=== PATIENT | female | born 1985 | race Caucasian/White ===

== ENCOUNTER 2021-05-29 21:22 | Emergency (ER) | payer BC, OTHER ==
[2021-05-29] MEDS ORDERED: LORazepam 2 MG/ML INJ IM STA (22:02)
[2021-05-29] MEDS ORDERED: ZIPRASIDONE 20 MG VIAL IM STA (22:02)
--- NOTE | 2021-05-29 22:29 | ED ---
Alcohol HPI - General Chief Complaint: Alcohol Stated Complaint: ETOH, head laceration Time Seen by Provider: 05/29/21 21:29 Source: EMS Mode of arrival: EMS Limitations: altered mental status - History of Present Illness Initial Comments: This patient is a 35-year-old woman who was brought in to have evaluation after she reportedly was intoxicated and behaving bizarrely. The patient is not able to give any history. She does appear to be quite paranoid at my exam. MD Complaint: alcohol intoxication Last Drink: unknown Recent Trauma: Yes - Related Data Home Medications Medication Instructions Recorded Confirmed Dextroamphetamine/Amphetamine 30 mg PO DAILY 05/29/21 05/29/21 [Adderall Xr] Fluoride (Sodium) [Sodium Fluoride 1 applic DENTAL DIRECTED 05/29/21 05/29/21 5000 Plus] Fluoxetine (Unknown Dose) 1 cap PO DIRECTED 05/29/21 05/29/21 medroxyPROGESTERone [Depo-Provera] 150 mg IM Q84D 05/29/21 05/29/21 Allergies Allergy/AdvReac Type Severity Reaction Status Date / Time No Known Allergies Allergy Verified 11/12/19 14:01 Review of Systems ROS Statement: Those systems with pertinent positive or pertinent negative responses have been documented in the HPI. ROS Other: All systems not noted in ROS Statement are negative. 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 Date of last positivie culture/infection: 2011 MDRO Source:: right arm Past Surgical History: Adenoidectomy, Tonsillectomy Additional Past Surgical History / Comment(s): carpal tunnel, lung washing, right arm abscess, Past Psychological History: ADD/ADHD, Bipolar Smoking Status: Former smoker Past Alcohol Use History: Abuse, Daily Past Drug Use History: None Reported General Exam Limitations: no limitations General appearance: alert, appears intoxicated Head exam: Present: normocephalic, other (Patient does have frontal contusion and abrasion to the scalp) Eye exam: Present: PERRL, EOMI, nystagmus. Absent: scleral icterus, c onjunctival injection ENT exam: Present: normal oropharynx Neck exam: Present: normal inspection, full ROM. Absent: tenderness, meningismus Respiratory exam: Present: normal lung sounds bilaterally. Absent: respiratory distress, wheezes, rales, rhonchi, stridor Cardiovascular Exam: Present: regular rate, normal rhythm, normal heart sounds. Absent: systolic murmur, diastolic murmur, rubs, gallop GI/Abdominal exam: Present: soft. Absent: distended, tenderness, guarding, rebound, rigid, mass Extremities exam: Present: normal inspection, normal capillary refill. Absent: pedal edema, calf tenderness Back exam: Present: normal inspection. Absent: vertebral tenderness Neurological exam: Present: alert Skin exam: Present: warm, dry, intact, normal color. Absent: rash Course Vital Signs 05/29/21 05/30/21 05/30/21 21:26 02:00 03:00 Temperature 98.2 F 98.3 F Pulse Rate 93 83 Respiratory 20 17 17 Rate Blood Pressure 127/72 O2 Sat by Pulse 100 98 Oximetry 05/30/21 05/30/21 04:00 06:00 Temperature 98.7 F Pulse Rate 79 Respiratory 17 16 Rate Blood Pressure 97/64 O2 Sat by Pulse 96 Oximetry Procedures - Restraint - Face to Face Restraint Occurrence 1 Patient's Immediate Situation: Endangers self safety, Endangers others' safety Patient's Reaction to the Intervention: Uncooperative, Bizarre, Suspicious, Combative Patient's Medical & Behavioral Condition: Bizarre behavior Need to Continue or Terminate Restraint or Seclusion: Continue Face to Face Eval of Restraint Date: 05/29/21 Face to Face Eval of Restraint Time: 21:42 Medical Decision Making - Medical Decision Making Patient is a 35-year-old woman who is brought to have evaluation. She is initially uncooperative with the history and physical. The patient was going in and out of random patient rooms. She appeared to be paranoid and defensive. She did even jump up into the arms of a security incident response engineer here, wrapping her arms and legs around the guard. On reevaluation, after sobriety, the patient does not recall much of the prior events. She is contrite. There is no suicidal or homicidal ideation. Patient not displaying paranoid or delusional type behavior any longer - Lab Data Result diagrams: 05/30/21 01:37 05/30/21 01:37 Lab Results 05/30/21 05/30/21 Range/Units 01:37 01:37 WBC 9.0 (3.8-10.6) k/uL RBC 4.56 (3.80-5.40) m/uL Hgb 15.0 (11.4-16.0) gm/dL Hct 45.2 (34.0-46.0) % MCV 99.1 (80.0-100.0) fL MCH 32.9 (25.0-35.0) pg MCHC 33.2 (31.0-37.0) g/dL RDW 13.1 (11.5-15.5) % Plt Count 239 (150-450) k/uL MPV 7.8 Neutrophils % 81 % Lymphocytes % 13 % Monocytes % 4 % Eosinophils % 1 % Basophils % 0 % Neutrophils # 7.3 (1.3-7.7) k/uL Lymphocytes # 1.2 (1.0-4.8) k/uL Monocytes # 0.3 (0-1.0) k/uL Eosinophils # 0.1 (0-0.7) k/uL Basophils # 0.0 (0-0.2) k/uL Sodium 144 (137-145) mmol/L Potassium 3.6 (3.5-5.1) mmol/L Chloride 109 H (98-107) mmol/L Carbon Dioxide 24 (22-30) mmol/L Anion Gap 11 mmol/L BUN 12 (7-17) mg/dL Creatinine 0.79 (0.52-1.04) mg/dL Est GFR (CKD-EPI)AfAm >90 (>60 ml/min/1.73 sqM) Est GFR (CKD-EPI)NonAf >90 (>60 ml/min/1.73 sqM) Glucose 106 H (74-99) mg/dL Calcium 9.0 (8.4-10.2) mg/dL Serum Alcohol 188 mg/dL Disposition Clinical Impression: Alcoholic intoxication Disposition: HOME SELF-CARE Condition: Good Instructions (If sedation given, give patient instructions): Alcohol Intoxication (ED) Is patient prescribed a controlled substance at d/c from ED?: No Referrals: None,Stated [Primary Care Provider] - 1-2 days
[2021-05-30 01:58] LABS: African American GFR (CKD) >90 (>60 ml/min/1.73 sqM); Anion Gap 11 mmol/L; Basophils % (A) 0 %; Blood Urea Nitrogen 12 mg/dL (7-17); Carbon Dioxide 24 mmol/L (22-30); Chloride 109 mmol/L (98-107); Eosinophils # (A) 0.1 k/uL (0-0.7); Eosinophils % (A) 1 %; Glucose 106 mg/dL (74-99); HCT 45.2 % (34.0-46.0); Lymphocytes # (A) 1.2 k/uL (1.0-4.8); Lymphocytes % (A) 13 %; MCH 32.9 pg (25.0-35.0); MCHC 33.2 g/dL (31.0-37.0); MCV 99.1 fL (80.0-100.0); Mean Platelet Volume 7.8; Monocytes # (A) 0.3 k/uL (0-1.0); Monocytes % (A) 4 %; Neutrophils # (A) 7.3 k/uL (1.3-7.7); Neutrophils % (A) 81 %; Non-African American GFR(CKD) >90 (>60 ml/min/1.73 sqM); Platelet Count 239 k/uL (150-450); Potassium 3.6 mmol/L (3.5-5.1); RBC 4.56 m/uL (3.80-5.40); RDW 13.1 % (11.5-15.5); Sodium 144 mmol/L (137-145)
[2021-05-30 02:01] LABS: Alcohol 188 mg/dL
--- NOTE | 2021-05-30 03:58 | CT ---
EXAMINATION TYPE: CT brain wo con DATE OF EXAM: 05/30/2021 COMPARISON: None HISTORY: fall CT DLP: 1086.4 mGycm Automated exposure control for dose reduction was used. Ventricles and sulci appear normal. There is no mass effect or midline shift. There is no evidence of intracranial hemorrhage. There is normal aeration of the mastoid sinuses. Calvarium is intact. Skull base is intact. IMPRESSION: Negative unenhanced head CT scan.
[2021-05-30 06:03] VITALS: BP 97/64; PULSE 79; RESP 16; TEMP 98.7
== END 2021-05-30 08:12 | disposition home or self-care (01) ==
LOC: EC 21:22
DX: F10.129 Alcohol abuse with intoxication, unspecified (principal); K21.9 Gastro-esophageal reflux disease without esophagitis; F90.9 Attention-deficit hyperactivity disorder, unspecified type; F31.9 Bipolar disorder, unspecified; Y90.6 Blood alcohol level of 120-199 mg/100 ml; Z87.891 Personal history of nicotine dependence
CPT/HCPCS: 99285; 96372 ×2; 36415; 80048; 85025; 80320; 70450; J2060; J3486

== ENCOUNTER 2022-11-06 19:31 | Emergency (ER) | payer BC ==
[2022-11-06 19:47] VITALS: RESP 18
[2022-11-06] MEDS ORDERED: ONDANSETRON 4 MG/2 ML VIAL IVP STA (20:15)
[2022-11-06] MEDS ORDERED: SODIUM CHLORIDE 0.9% 1,000 ML IV ONE (20:15)
[2022-11-06] MEDS ORDERED: KETOROLAC 15 MG/ML 1 ML VIAL IVP STA (20:15)
[2022-11-06 20:56] LABS: Basophils % (A) 1 %; Eosinophils # (A) 0.1 k/uL (0-0.7); Eosinophils % (A) 3 %; HCT 37.8 % (34.0-46.0); HGB 13.2 gm/dL (11.4-16.0); Lymphocytes # (A) 0.9 k/uL (1.0-4.8); Lymphocytes % (A) 20 %; MCH 34.5 pg (25.0-35.0); MCV 98.8 fL (80.0-100.0); Mean Platelet Volume 7.9; Monocytes # (A) 0.3 k/uL (0-1.0); Monocytes % (A) 6 %; Neutrophils # (A) 3.2 k/uL (1.3-7.7); Neutrophils % (A) 69 %; Platelet Count 157 k/uL (150-450); RBC 3.83 m/uL (3.80-5.40); RDW 13.2 % (11.5-15.5); WBC 4.6 k/uL (3.8-10.6)
[2022-11-06 21:07] LABS: ALT 37 U/L (4-34); AST 51 U/L (14-36); African American GFR (CKD) >90 (>60 ml/min/1.73 sqM); Alkaline Phosphatase 86 U/L (38-126); Anion Gap 9 mmol/L; Blood Urea Nitrogen 17 mg/dL (7-17); Calcium 8.8 mg/dL (8.4-10.2); Carbon Dioxide 24 mmol/L (22-30); Chloride 107 mmol/L (98-107); Glucose 95 mg/dL (74-99); Non-African American GFR(CKD) >90 (>60 ml/min/1.73 sqM); Potassium 3.7 mmol/L (3.5-5.1); Sodium 140 mmol/L (137-145); Total Bilirubin 0.4 mg/dL (0.2-1.3); Total Protein 6.6 g/dL (6.3-8.2)
[2022-11-06 21:25] LABS: Appearance,Urine Cloudy (Clear); Bacteria,Urine Few /hpf; Bilirubin,Urine Negative (Negative); Blood,Urine Small (Negative); Color,Urine Light Red; Glucose,Urine (UA) Negative (Negative); Ketones,Urine Trace (Negative); Leukocyte Esterase,Urine Trace (Negative); Mucus,Urine Few /hpf; Nitrite,Urine Negative (Negative); PH, Urine 6.5 (5.0-8.0); Protein,Urine 1+ (Negative); RBC,Urine 4 /hpf (0-5); Specific Gravity,Urine 1.035 (1.001-1.035); Squamous Epithelial Cell,Urine 7 /hpf (0-4); Urobilinogen,Urine <2.0 mg/dL (<2.0); WBC,Urine 2 /hpf (0-5)
--- NOTE | 2022-11-06 22:14 | ED ---
Female Urogenital HPI - General Chief complaint: Urogenital Stated complaint: abd pain Time Seen by Provider: 11/06/22 20:05 Source: patient Mode of arrival: wheelchair Limitations: no limitations - History of Present Illness Initial comments: 37-year-old female presenting with chief complaint of pelvic pain. Pain is been ongoing for the last 2 weeks, even across both sides of the pelvis. Patient has history of endometriosis. States that she experiences pelvic pressure with urination and defecation. She admits to intermittent nausea and vomiting. No fevers. No diarrhea. No vaginal discharge or bleeding. Patient was recently on antibiotics for a UTI. No flank pain. She is sexually active with same long-term partner, denies any chance of . - Related Data Home Medications Medication Instructions Recorded Confirmed Dextroamphetamine/Amphetamine 30 mg PO DAILY 05/29/21 05/29/21 [Adderall Xr] Fluoride (Sodium) [Sodium Fluoride 1 applic DENTAL DIRECTED 05/29/21 05/29/21 5000 Plus] Fluoxetine (Unknown Dose) 1 cap PO DIRECTED 05/29/21 05/29/21 medroxyPROGESTERone [Depo-Provera] 150 mg IM Q84D 05/29/21 05/29/21 Previous Rx's Medication Instructions Recorded Amoxic-Pot Clav 875-125Mg 1 tab PO Q12HR 10 Days #20 tab 11/06/22 [Augmentin 875-125] Ondansetron Odt [Zofran Odt] 4 mg PO Q8HR PRN #20 tab 11/06/22 Allergies Allergy/AdvReac Type Severity Reaction Status Date / Time No Known Allergies Allergy Verified 11/06/22 19:43 Review of Systems ROS Statement: Those systems with pertinent positive or pertinent negative responses have been documented in the HPI. ROS Other: All systems not noted in ROS Statement are negative. 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 Date of last positivie culture/infection: 2011 MDRO Source:: right arm Past Surgical History: Adenoidectomy, Tonsillectomy Additional Past Surgical History / Comment(s): carpal tunnel, lung washing, rig ht arm abscess, Past Psychological History: ADD/ADHD, Bipolar Smoking Status: Former smoker Past Alcohol Use History: Occasional Past Drug Use History: None Reported, Marijuana General Exam Limitations: no limitations General appearance: alert, in no apparent distress Head exam: Present: atraumatic, normocephalic, normal inspection Eye exam: Present: normal appearance, EOMI Neck exam: Present: normal inspection, full ROM Respiratory exam: Present: normal lung sounds bilaterally. Absent: respiratory distress, wheezes, rales, rhonchi, stridor Cardiovascular Exam: Present: regular rate, normal rhythm, normal heart sounds. Absent: systolic murmur, diastolic murmur, rubs, gallop, clicks GI/Abdominal exam: Present: soft, tenderness. Absent: distended, guarding, rebound, rigid Neurological exam: Present: alert, oriented X3, CN II-XII intact Psychiatric exam: Present: normal affect, normal mood Skin exam: Present: warm, dry, intact, normal color. Absent: rash Course Vital Signs 11/06/22 19:43 Temperature 99.0 F Pulse Rate 114 H Respiratory 18 Rate Blood Pressure 138/66 O2 Sat by Pulse 98 Oximetry Medical Decision Making - Medical Decision Making Was pt. sent in by a medical professional or institution (, PA, PHLEBOTOMIST, urgent care, hospital, or fdc...) When possible be specific @ -No Did you speak to anyone other than the patient for history (EMS, parent, family, police, friend...)? What history was obtained from this source @ -No Did you review nursing and triage notes (agree or disagree)? Why? @ -I reviewed and agree with nursing and triage notes Were old charts reviewed (outside hosp., previous admission, EMS record, old EKG, old radiological studies, urgent care reports/EKG's, fdc records)? Report findings @ -No old charts were reviewed Differential Diagnosis (chest pain, altered mental status, abdominal pain women, abdominal pain men, vaginal bleeding, weakness, fever, dyspnea, syncope, headache, dizziness, GI bleed, back pain, seizure, CVA, palpatations, mental health, musculoskeletal)? @ -MDM Differential Abdominal Pain Women: Appendicitis, Cholecystitis, diverticulosis, ischemic bowel, pancreatitis, hepatitis, UTI, gastroenteritis, AAA, incarcerated hernia, bowel obstruction, constipation, inflammatory bowel, hepatitis, peptic ulcer disease, splenic infarction, perforated viscus, vulvitis, ovarian torsion, PID, kidney stone, placenta abruption... This is not meant to be an all-inclusive list EKG interpreted by me (3pts min.). @ -As above X-rays interpreted by me (1pt min.). @ -None done CT interpreted by me (1pt min.). @ -CT shows some circumferential wall thickening of the rectum. This may in part be due to nondistention. Nonobstructive 6 mm right renal calculus. U/S interpreted by me (1pt. min.). @ -None done What testing was considered but not performed or refused? (CT, X-rays, U/S, labs)? Why? @ -None What meds were considered but not given or refused? Why? @ -None Did you discuss the management of the patient with other professionals (professionals i.e. , PA, PHLEBOTOMIST, lab, RT, psych nurse, social work instructor, web services developer, teacher, dairy quality assurance officer, case work aide)? Give summary @ -No Was smoking cessation discussed for >3mins.? @ -No Was critical care preformed (if so, how long)? @ -No Were there social determinants of health that impacted care today? How? (Homelessness, low income, unemployed, alcoholism, drug addiction, transportation, low edu. Level, literacy, decrease access to med. care, snf, rehab)? @ -No Was there de-escalation of care discussed even if they declined (Discuss DNR or withdrawal of care, Hospice)? DNR status @ -No What co-morbidities impacted this encounter? (DM, HTN, Smoking, COPD, CAD, Cancer, CVA, ARF, Chemo, Hep., AIDS, mental health diagnosis, sleep apnea, morbid obesity)? @ -None Was patient admitted / discharged? Hospital course, mention meds given and route, prescriptions, significant lab abnormalities, going to OR and other pertinent info. @ -37-year-old female presenting with chief complaint of pelvic pain ongoing for 2 days. She admits to intermittent nausea and vomiting. Pain is worse with bowel movements. On physical examination there is tenderness over the bilateral lower quadrants. Lab work shows no leukocytosis or anemia. There is mild transaminitis. Urine shows signs of contamination, will be sent for culture. HCG is negative. CT shows circumferential wall thickening of the rectum. Patient will be treated for infectious colitis with Augmentin and instructed to follow-up with PCP and GI. She is educated on today's findings and management at home. Follow-up with PCP. Report back to ER with any new or worsening symptoms. Discussed return parameters and answered all questions. Patient conveyed verbal understanding and agreed to the plan. I discussed this case in detail with my attending Dr. Zheng Undiagnosed new problem with uncertain prognosis? @ -No Drug Therapy requiring intensive monitoring for toxicity (Heparin, Nitro, Insulin, Cardizem)? @ -No Were any procedures done? @ -No Diagnosis/symptom? @ -Colitis Acute, or Chronic, or Acute on Chronic? @ -Acute Uncomplicated (without systemic symptoms) or Complicated (systemic symptoms)? @ -Uncomplicated Side effects of treatment? @ -No Exacerbation, Progression, or Severe Exacerbation? @ -No Poses a threat to life or bodily function? How? (Chest pain, [place], HI, pneumonia, PE, COPD, DKA, ARF, appy, cholecystitis, CVA, Diverticulitis, Homicidal, Suicidal, threat to staff... and all critical care pts) @ -No - Lab Data Result diagrams: 11/06/22 20:44 11/06/22 20:44 Lab Results 11/06/22 11/06/22 11/06/22 Range/Units 20:44 20:44 21:02 WBC 4.6 (3.8-10.6) k/uL RBC 3.83 (3.80-5.40) m/uL Hgb 13.2 (11.4-16.0) gm/dL Hct 37.8 (34.0-46.0) % MCV 98.8 (80.0-100.0) fL MCH 34.5 (25.0-35.0) pg MCHC 35.0 (31.0-37.0) g/dL RDW 13.2 (11.5-15.5) % Plt Count 157 (150-450) k/uL MPV 7.9 Neutrophils % 69 % Lymphocytes % 20 % Monocytes % 6 % Eosinophils % 3 % Basophils % 1 % Neutrophils # 3.2 (1.3-7.7) k/uL Lymphocytes # 0.9 L (1.0-4.8) k/uL Monocytes # 0.3 (0-1.0) k/uL Eosinophils # 0.1 (0-0.7) k/uL Basophils # 0.0 (0-0.2) k/uL Sodium 140 (137-145) mmol/L Potassium 3.7 (3.5-5.1) mmol/L Chloride 107 (98-107) mmol/L Carbon Dioxide 24 (22-30) mmol/L Anion Gap 9 mmol/L BUN 17 (7-17) mg/dL Creatinine 0.73 (0.52-1.04) mg/dL Est GFR (CKD-EPI)AfAm >90 (>60 ml/min/1.73 sqM) Est GFR (CKD-EPI)NonAf >90 (>60 ml/min/1.73 sqM) Glucose 95 (74-99) mg/dL Calcium 8.8 (8.4-10.2) mg/dL Total Bilirubin 0.4 (0.2-1.3) mg/dL AST 51 H (14-36) U/L ALT 37 H (4-34) U/L Alkaline Phosphatase 86 (38-126) U/L Total Protein 6.6 (6.3-8.2) g/dL Albumin 4.0 (3.5-5.0) g/dL Urine Color Urine Appearance (Clear) Urine pH (5.0-8.0) Ur Specific Docena (1.001-1.035) Urine Protein (Negative) Urine Glucose (UA) (Negative) Urine Ketones (Negative) Urine Blood (Negative) Urine Nitrite (Negative) Urine Bilirubin (Negative) Urine Urobilinogen (<2.0) mg/dL Ur Leukocyte Esterase (Negative) Urine RBC (0-5) /hpf Urine WBC (0-5) /hpf Ur Squamous Epith Cells (0-4) /hpf Urine Bacteria (None) /hpf Urine Mucus (None) /hpf Urine HCG, Qual Not Detected (Not Detectd) 11/06/22 Range/Units 21:02 WBC (3.8-10.6) k/uL RBC (3.80-5.40) m/uL Hgb (11.4-16.0) gm/dL Hct (34.0-46.0) % MCV (80.0-100.0) fL MCH (25.0-35.0) pg MCHC (31.0-37.0) g/dL RDW (11.5-15.5) % Plt Count (150-450) k/uL MPV Neutrophils % % Lymphocytes % % Monocytes % % Eosinophils % % Basophils % % Neutrophils # (1.3-7.7) k/uL Lymphocytes # (1.0-4.8) k/uL Monocytes # (0-1.0) k/uL Eosinophils # (0-0.7) k/uL Basophils # (0-0.2) k/uL Sodium (137-145) mmol/L Potassium (3.5-5.1) mmol/L Chloride (98-107) mmol/L Carbon Dioxide (22-30) mmol/L Anion Gap mmol/L BUN (7-17) mg/dL Creatinine (0.52-1.04) mg/dL Est GFR (CKD-EPI)AfAm (>60 ml/min/1.73 sqM) Est GFR (CKD-EPI)NonAf (>60 ml/min/1.73 sqM) Glucose (74-99) mg/dL Calcium (8.4-10.2) mg/dL Total Bilirubin (0.2-1.3) mg/dL AST (14-36) U/L ALT (4-34) U/L Alkaline Phosphatase (38-126) U/L Total Protein (6.3-8.2) g/dL Albumin (3.5-5.0) g/dL Urine Color Light Red Urine Appearance Cloudy H (Clear) Urine pH 6.5 (5.0-8.0) Ur Specific Docena 1.035 (1.001-1.035) Urine Protein 1+ H (Negative) Urine Glucose (UA) Negative (Negative) Urine Ketones Trace H (Negative) Urine Blood Small H (Negative) Urine Nitrite Negative (Negative) Urine Bilirubin Negative (Negative) Urine Urobilinogen <2.0 (<2.0) mg/dL Ur Leukocyte Esterase Trace H (Negative) Urine RBC 4 (0-5) /hpf Urine WBC 2 (0-5) /hpf Ur Squamous Epith Cells 7 H (0-4) /hpf Urine Bacteria Few H (None) /hpf Urine Mucus Few H (None) /hpf Urine HCG, Qual (Not Detectd) Disposition Clinical Impression: Colitis Disposition: HOME SELF-CARE Condition: Fair Instructions (If sedation given, give patient instructions): Colitis (ED) Additional Instructions: Follow-up with PCP and gastroenterology. Report back to ER with any new or worsening symptoms. Take medication as prescribed. Prescriptions: Amoxic-Pot Clav 875-125Mg [Augmentin 875-125] 1 tab PO Q12HR 10 Days #20 tab Ondansetron Odt [Zofran Odt] 4 mg PO Q8HR PRN #20 tab PRN Reason: Nausea Is patient prescribed a controlled substance at d/c from ED?: No Referrals: Nonstaff,Physician [Primary Care Provider] - 1-2 days Anna Fox MD [STAFF PHYSICIAN] - 1-2 days Time of Disposition: 22:41
--- NOTE | 2022-11-06 22:20 | CT ---
EXAMINATION TYPE: CT abdomen pelvis w con DATE OF EXAM: 11/06/2022 COMPARISON: NONE HISTORY: 37-year-old female lower abdominal/ pelvic pain x few weeks, TECHNIQUE: Contiguous axial scanning of the abdomen and pelvis following administration of 100 ml Iso valentina 300 IV contrast. Delayed images through the kidneys and coronal/sagittal reconstructions perform ed. CT DLP: 1026.6 mGycm Automated exposure control for dose reduction was used. FINDINGS: LUNG BASES: Strandy atelectasis in the lower lungs. No pleural effusion. LIVER/GB: There may be some underlying fatty infiltration of the liver. No focal liver lesion or bili carlos ductal dilatation. Portal venous system is patent. Some additional focal fat along the anterior f alciform ligament. No abnormal gallbladder distention. PANCREAS: No significant abnormality is seen. SPLEEN: No significant abnormality is seen. ADRENALS: No significant abnormality is seen. KIDNEYS: A 1.1 cm lower pole right renal cortical cyst. 6 mm nonobstructive right renal stone. Puncta te 2 mm nonobstructive left renal stone. There is symmetric uptake and excretion of contrast from the kidneys. BOWEL: Sbar-rf-kitzaryr circumferential wall thickening of the rectum, axial image 74 may in part be due to nondistention. Normal appendix. Scattered mild stool. Left side of the colon is collapsed. No dilated small bowel, free fluid, or free air. LYMPH NODES: No greater than 1cm abdominal or pelvic lymph nodes are appreciated. PELVIS: Bladder is collapsed. Uterus anteverted. Both ovaries are visualized. No abnormal fluid colle ction in the pelvis or pelvic lymphadenopathy. OSSEOUS STRUCTURES: No significant abnormality is seen. OTHER: No significant additional abnormality is seen. IMPRESSION: THERE SEEMS TO BE SOME CIRCUMFERENTIAL WALL THICKENING OF THE RECTUM. THIS MAY IN PART BE DUE TO NOND ISTENTION. CORRELATE FOR SYMPTOMS OF NONSPECIFIC INFECTIOUS OR INFLAMMATORY DISTAL COLITIS. NONOBSTRUCTIVE 6 MM RIGHT RENAL CALCULUS.
[2022-11-06] MEDS ORDERED: MORPHINE SULFATE 4 MG/ML SYRINGE IVP STA (22:38)
[2022-11-06] MEDS ORDERED: AMOXIC-POT CLAV 875-125MG 1 EACH TAB PO STA (22:41)
[2022-11-06 23:04] VITALS: BP 126/83; PULSE 88; TEMP 97.9
== END 2022-11-06 23:04 | disposition home or self-care (01) ==
LOC: EC 19:31
DX: K52.9 Noninfective gastroenteritis and colitis, unspecified (principal); F31.9 Bipolar disorder, unspecified; Z87.891 Personal history of nicotine dependence; F12.90 Cannabis use, unspecified, uncomplicated; Z79.899 Other long term (current) drug therapy
CPT/HCPCS: 36415; 80053; 85025; 81001; 81025; 74177; 99284; 96374; 96375 ×2; 96361 ×2; J2270; J2405; J1885; Q9967

== ENCOUNTER 2023-01-09 10:24 | Emergency (ER) | payer BC ==
--- NOTE | 2023-01-09 12:04 | ED ---
Syncope HPI - General Chief Complaint: Syncope Stated Complaint: syncope Time Seen by Provider: 01/09/23 12:02 Source: patient, RN notes reviewed Mode of arrival: ambulatory Limitations: no limitations - History of Present Illness Initial Comments: This is a 35 year old female who presents to the emergency department for a syncopal episode. Patient was doing work at home and states that she suddenly woke up on the floor. Her son came to the house and knocked on the door multiple times, and states that it took her a long time to become fully coherent and get up to answer the door. She does have a hx of seizures, however she has not had one in several years. Denies biting her tongue or any loss of bowel/bladder control. She does report generalized body aches since waking up. Denies any chest pain or shortness of breath. Also states that since waking up she has had epigastric pain and nausea. MD Complaint: loss of consciousness - Related Data Home Medications Medication Instructions Recorded Confirmed Dextroamphetamine/Amphetamine 30 mg PO DAILY 05/29/21 01/09/23 [Adderall Xr] medroxyPROGESTERone [Depo-Provera] 150 mg IM Q84D 05/29/21 01/09/23 Albuterol Inhaler [Ventolin Hfa 1 - 2 puff INHALATION RT-Q6H PRN 01/09/23 01/09/23 Inhaler] Atorvastatin [Lipitor] 20 mg PO HS 01/09/23 01/09/23 FLUoxetine HCL 40 mg PO DAILY 01/09/23 01/09/23 FLUoxetine HCL [PROzac] 20 mg PO DAILY 01/09/23 01/09/23 Magnesium 250 mg PO DAILY 01/09/23 01/09/23 buPROPion XL [Wellbutrin XL] 150 mg PO DAILY 01/09/23 01/09/23 Previous Rx's Medication Instructions Recorded Ondansetron Odt [Zofran Odt] 4 mg PO Q8HR PRN #20 tab 11/06/22 Allergies Allergy/AdvReac Type Severity Reaction Status Date / Time No Known Allergies Allergy Verified 01/09/23 13:34 Review of Systems ROS Statement: Those systems with pertinent positive or pertinent negative responses have been documented in the HPI. ROS Other: All systems not noted in ROS Statement are negative. 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 Head: Normocephalic, atraumatic Eyes: PERRLA, EOMI ENT: Airway patent Chest: Nonlabored breathing Skin: No visual rash, normal skin tone Neuro: Alert and oriented 3 Musculoskeletal: No gross abnormalities I performed the QuickNote portion of this chart. Signed Leela Fall PA-C. Limitations: no limitations Course Vital Signs 01/09/23 01/09/23 01/09/23 11:09 14:49 16:21 Temperature 97.9 F 98.1 F 98.6 F Pulse Rate 91 92 82 Respiratory 16 18 18 Rate Blood Pressure 135/94 148/86 149/99 O2 Sat by Pulse 98 100 99 Oximetry Medical Decision Making - Medical Decision Making This is a 37 year old female who presents to the emergency department for a syncopal episode. Was pt. sent in by a medical professional or institution? @ -No Did you speak to anyone other than the patient for history? @ -No Did you review nursing and triage notes? @ -Yes, and I agree, it is accurate with regards to the patient's symptoms. Were old charts reviewed? @ -No Differential Diagnosis? @ -Differential Syncope: Valvular disease, hypertrophic cardiomyopathy, pulmonary embolism, tamponade, tachycardia, bradycardia, MT, hypovolemia, hemorrhage, dissection, anemia, intracranial hemorrhage, seizure, hypoglycemia, carbon monoxide poisoning, this is not meant to be an all-inclusive list. EKG interpreted by me (3pts min.)? @ -EKG interpreted by me demonstrating the following: Sinus rhythm. Ventricu lar rate 83 beats per minute, NV interval 129 ms, QRS duration 77 ms, QTC 410 ms. X-rays interpreted by me (1pt min.)? @ -Not obtained CT interpreted by me (1pt min.)? @ -Not obtained U/S interpreted by me (1pt. min.)? @ -Gallbladder ultrasound obtained. My interpretation identifies no evidence of gallbladder wall thickening or cholelithiasis. What testing was considered but not performed? (CT, X-rays, U/S, labs)? Why? @ -None What meds were considered but not given? Why? @ -None Did you discuss the management of the patient with other professionals? @ -No Did you reconcile home meds? @ -No Was smoking cessation discussed for >3mins.? @ -No Was critical care preformed (if so, how long)? @ -No Were there social determinants of health that impacted care today? How? (Homelessness, low income, unemployed, alcoholism, drug addiction, transportation, low edu. Level, literacy, decrease access to med. care, long-term, rehab)? @ -Alcoholism, increasing liver enzymes, which were noted to be elevated more so than normal on lab work obtained today. Was there de-escalation of care discussed even if they declined? (Discuss DNR or withdrawal of care, Hospice)? @ -No What co-morbidities impacted this encounter? (DM, HTN, Smoking, COPD, CAD, Cancer, CVA, Hep., AIDS, mental health diagnosis, sleep apnea, morbid obesity)? @ -Seizures, alcoholism Was patient admitted / discharged? @ -Discharged. Lab work obtained revealing elevated liver enzymes and no other actionable findings. Heterophile and alcohol level were negative. In light of the elevated liver enzymes, we did obtain a gallbladder ultrasound revealing hepatic steatosis. Discussed with the patient that given that she has been having body aches following the syncopal episode, as well as confusion and taking a long time to become coherent after the syncopal episode, it is very possible that she did have a seizure. She was given IV fluids and her symptoms were well controlled in the emergency department. She was given information for local primary care providers as well as follow up with gastroenterology for further evaluation of the elevated liver enzymes. She is also advised to stop consuming alcohol, as this will further contribute to the problem. Undiagnosed new problem with uncertain prognosis? @ -None Drug Therapy requiring intensive monitoring for toxicity (Heparin, Nitro, Insulin, Cardizem)? @ -None Were any procedures done? @ -None Diagnosis/symptom? @ -Syncope Acute, or Chronic, or Acute on Chronic? @ -Acute Uncomplicated (without systemic symptoms) or Complicated (systemic symptoms)? @ -Uncomplicated Side effects of treatment? @ -None Exacerbation, Progression, or Severe Exacerbation] @ -Not applicable Poses a threat to life or bodily function? @ -Unclear Return precautions reviewed in depth, the patient is instructed to return to the emergency department with any new, worsening, or concerning symptoms. Patient verbalized understanding. This case was discussed in detail with the attending ED physician, Dr. Norris. Presentation, findings, and treatment plan discussed in detail as well. - Lab Data Result diagrams: 01/09/23 12:00 01/09/23 12:00 Lab Results 01/09/23 01/09/23 01/09/23 Range/Units 12:00 12:00 12:00 WBC 8.9 (3.8-10.6) k/uL RBC 4.43 (3.80-5.40) m/uL Hgb 15.4 (11.4-16.0) gm/dL Hct 45.9 (34.0-46.0) % MCV 103.6 H (80.0-100.0) fL MCH 34.9 (25.0-35.0) pg MCHC 33.7 (31.0-37.0) g/dL RDW 13.9 (11.5-15.5) % Plt Count 184 (150-450) k/uL MPV 8.4 Neutrophils % 92 % Lymphocytes % 3 % Monocytes % 3 % Eosinophils % 1 % Basophils % 0 % Neutrophils # 8.2 H (1.3-7.7) k/uL Lymphocytes # 0.3 L (1.0-4.8) k/uL Monocytes # 0.2 (0-1.0) k/uL Eosinophils # 0.1 (0-0.7) k/uL Basophils # 0.0 (0-0.2) k/uL Macrocytosis Slight PT 10.0 (9.0-12.0) sec INR 0.9 (<1.2) APTT 20.8 L (22.0-30.0) sec Sodium 140 (137-145) mmol/L Potassium 4.1 (3.5-5.1) mmol/L Chloride 100 (98-107) mmol/L Carbon Dioxide 26 (22-30) mmol/L Anion Gap 14 mmol/L BUN 15 (7-17) mg/dL Creatinine 0.52 (0.52-1.04) mg/dL Est GFR (CKD-EPI)AfAm >90 (>60 ml/min/1.73 sqM) Est GFR (CKD-EPI)NonAf >90 (>60 ml/min/1.73 sqM) Glucose 99 (74-99) mg/dL Calcium 10.3 H (8.4-10.2) mg/dL Total Bilirubin 1.7 H (0.2-1.3) mg/dL AST 370 H (14-36) U/L ALT 262 H (4-34) U/L Alkaline Phosphatase 88 (38-126) U/L Troponin I (0.000-0.034) ng/mL Total Protein 7.9 (6.3-8.2) g/dL Albumin 5.0 (3.5-5.0) g/dL Serum Alcohol mg/dL Heterophile Antibody (Negative) 01/09/23 01/09/23 01/09/23 Range/Units 12:00 13:55 14:59 WBC (3.8-10.6) k/uL RBC (3.80-5.40) m/uL Hgb (11.4-16.0) gm/dL Hct (34.0-46.0) % MCV (80.0-100.0) fL MCH (25.0-35.0) pg MCHC (31.0-37.0) g/dL RDW (11.5-15.5) % Plt Count (150-450) k/uL MPV Neutrophils % % Lymphocytes % % Monocytes % % Eosinophils % % Basophils % % Neutrophils # (1.3-7.7) k/uL Lymphocytes # (1.0-4.8) k/uL Monocytes # (0-1.0) k/uL Eosinophils # (0-0.7) k/uL Basophils # (0-0.2) k/uL Macrocytosis PT (9.0-12.0) sec INR (<1.2) APTT (22.0-30.0) sec Sodium (137-145) mmol/L Potassium (3.5-5.1) mmol/L Chloride (98-107) mmol/L Carbon Dioxide (22-30) mmol/L Anion Gap mmol/L BUN (7-17) mg/dL Creatinine (0.52-1.04) mg/dL Est GFR (CKD-EPI)AfAm (>60 ml/min/1.73 sqM) Est GFR (CKD-EPI)NonAf (>60 ml/min/1.73 sqM) Glucose (74-99) mg/dL Calcium (8.4-10.2) mg/dL Total Bilirubin (0.2-1.3) mg/dL AST (14-36) U/L ALT (4-34) U/L Alkaline Phosphatase (38-126) U/L Troponin I <0.012 (0.000-0.034) ng/mL Total Protein (6.3-8.2) g/dL Albumin (3.5-5.0) g/dL Serum Alcohol <10 mg/dL Heterophile Antibody Negative (Negative) - Radiology Data Radiology results: report reviewed, image reviewed Disposition Clinical Impression: Syncope, Nausea & vomiting Disposition: HOME SELF-CARE Instructions (If sedation given, give patient instructions): Syncope (ED) Additional Instructions: Return to the emergency department with any new, worsening, or concerning symptoms. Alternate with ibuprofen and Tylenol as needed for pain relief. Contact the communication engineer as listed below for a follow-up appointment regarding the elevated liver enzymes. Follow up with your primary care provider in 1-2 days. Is patient prescribed a controlled substance at d/c from ED?: No Referrals: Nonstaff,Physician [Primary Care Provider] - 1-2 days Anna Fox MD [STAFF PHYSICIAN] - 1-2 days Forms: Area PCPs
[2023-01-09 12:15] LABS: Basophils % (A) 0 %; Eosinophils # (A) 0.1 k/uL (0-0.7); Eosinophils % (A) 1 %; HCT 45.9 % (34.0-46.0); HGB 15.4 gm/dL (11.4-16.0); Lymphocytes # (A) 0.3 k/uL (1.0-4.8); Lymphocytes % (A) 3 %; MCH 34.9 pg (25.0-35.0); MCHC 33.7 g/dL (31.0-37.0); MCV 103.6 fL (80.0-100.0); Macrocytosis Slight; Mean Platelet Volume 8.4; Monocytes # (A) 0.2 k/uL (0-1.0); Monocytes % (A) 3 %; Neutrophils # (A) 8.2 k/uL (1.3-7.7); Neutrophils % (A) 92 %; Platelet Count 184 k/uL (150-450); RBC 4.43 m/uL (3.80-5.40); RDW 13.9 % (11.5-15.5); WBC 8.9 k/uL (3.8-10.6)
[2023-01-09 12:26] LABS: INR 0.9 (<1.2)
[2023-01-09 12:27] LABS: ALT 262 U/L (4-34); AST 370 U/L (14-36); African American GFR (CKD) >90 (>60 ml/min/1.73 sqM); Alkaline Phosphatase 88 U/L (38-126); Anion Gap 14 mmol/L; Blood Urea Nitrogen 15 mg/dL (7-17); Calcium 10.3 mg/dL (8.4-10.2); Carbon Dioxide 26 mmol/L (22-30); Chloride 100 mmol/L (98-107); Glucose 99 mg/dL (74-99); Non-African American GFR(CKD) >90 (>60 ml/min/1.73 sqM); Potassium 4.1 mmol/L (3.5-5.1); Sodium 140 mmol/L (137-145); Total Bilirubin 1.7 mg/dL (0.2-1.3); Total Protein 7.9 g/dL (6.3-8.2)
[2023-01-09 12:41] LABS: Partial Thromboplastin Time 20.8 sec (22.0-30.0)
[2023-01-09] MEDS ORDERED: KETOROLAC 15 MG/ML 1 ML VIAL IVP STA ×2 (13:19→15:47)
[2023-01-09] MEDS ORDERED: ONDANSETRON 4 MG/2 ML VIAL IVP STA (13:19)
[2023-01-09] MEDS ORDERED: SODIUM CHLORIDE 0.9% 1,000 ML IV STA (13:19)
--- NOTE | 2023-01-09 14:58 | US ---
EXAMINATION TYPE: US gallbladder DATE OF EXAM: 01/09/2023 COMPARISON: NONE CLINICAL INDICATION: Female, 37 years old with history of Epigastric pain, elevated LFTs; abdominal p ain with possible seizure this am TECHNIQUE: Multiple sonographic images of the right upper quadrant are obtained. FINDINGS: EXAM MEASUREMENTS: Liver Length: 14.0 cm Gallbladder Wall: 0.1 cm CBD: 0.6 cm Right Kidney: 9.9 x 4.2 x 4.5 cm Pancreas: The pancreatic tail and head are obscured by bowel gas shadowing. Visualized body shows no gross abnormality. Liver: difficult to penetrate markedly increased echogenicity. Gallbladder: wnl Evidence for sonographic Vincent's sign: no CBD: Borderline caliber. Right Kidney: wnl IMPRESSION: 1. Severe hepatic steatosis. Appropriate clinical management is advised. 2. No gallstones. 3. The bile duct is borderline in caliber at 6 mm. This may be chronic for the patient. Correlate wit h alkaline phosphatase and bilirubin levels to exclude early biliary obstruction.
[2023-01-09 14:59] VITALS: RESP 18
[2023-01-09] MEDS ORDERED: IBUPROFEN 600 MG STARTER PACK 4 TAB BTL PO STA (15:47)
[2023-01-09] MEDS ORDERED: ONDANSETRON 4 MG ODT STARTER PACK 2 TAB BTL PO STA (15:47)
[2023-01-09] MEDS ORDERED: ORPHENADRINE 30 MG/ML 2 ML VIAL IVP STA (15:47)
[2023-01-09] MEDS ORDERED: ACET/COD 300 MG/30 MG STARTER PACK 6 TAB BTL PO STA (15:47)
[2023-01-09] MEDS ORDERED: PROCHLORPERAZINE INJ 10 MG/2 ML VIAL IVP STA (15:48)
[2023-01-09 16:40] VITALS: BP 149/99; PULSE 82; TEMP 98.6
== END 2023-01-09 16:30 | disposition home or self-care (01) ==
LOC: EC 10:24
DX: R55 Syncope and collapse (principal); R11.2 Nausea with vomiting, unspecified; K76.0 Fatty (change of) liver, not elsewhere classified; F90.9 Attention-deficit hyperactivity disorder, unspecified type; F31.9 Bipolar disorder, unspecified; F12.90 Cannabis use, unspecified, uncomplicated; Z87.891 Personal history of nicotine dependence; Z79.899 Other long term (current) drug therapy
CPT/HCPCS: 36415; 93005; 80053; 84484; 85025; 85610; 85730; 86308; 80320; 76705; 99284; 96374; 96375 ×3; 96376; 96361; J0780; J2360; J2405; J1885; S0119

== ENCOUNTER 2023-02-22 20:52 | Emergency (ER) | payer BC ==
[2023-02-22 21:15] VITALS: BP 133/91; PULSE 105; RESP 18; TEMP 98.2
[2023-02-22] MEDS ORDERED: KETOROLAC 15 MG/ML 1 ML VIAL IM STA (21:38)
--- NOTE | 2023-02-22 22:07 | ED ---
General Adult HPI - General Chief complaint: Extremity Injury, Upper Stated complaint: Right hand injury Time Seen by Provider: 02/22/23 21:34 Source: patient, RN notes reviewed, old records reviewed Mode of arrival: ambulatory Limitations: no limitations - History of Present Illness Initial comments: 37-year-old female presenting with right middle finger injury. Patient slammed in the door just prior to arrival. No other injury reported. - Related Data Home Medications Medication Instructions Recorded Confirmed Dextroamphetamine/Amphetamine 30 mg PO DAILY 05/29/21 01/09/23 [Adderall Xr] medroxyPROGESTERone [Depo-Provera] 150 mg IM Q84D 05/29/21 01/09/23 Albuterol Inhaler [Ventolin Hfa 1 - 2 puff INHALATION RT-Q6H PRN 01/09/23 01/09/23 Inhaler] Atorvastatin [Lipitor] 20 mg PO HS 01/09/23 01/09/23 FLUoxetine HCL 40 mg PO DAILY 01/09/23 01/09/23 FLUoxetine HCL [PROzac] 20 mg PO DAILY 01/09/23 01/09/23 Magnesium 250 mg PO DAILY 01/09/23 01/09/23 buPROPion XL [Wellbutrin XL] 150 mg PO DAILY 01/09/23 01/09/23 Previous Rx's Medication Instructions Recorded Ondansetron Odt [Zofran Odt] 4 mg PO Q8HR PRN #20 tab 11/06/22 Allergies Allergy/AdvReac Type Severity Reaction Status Date / Time No Known Allergies Allergy Verified 02/22/23 21:02 Review of Systems ROS Statement: Those systems with pertinent positive or pertinent negative responses have been documented in the HPI. ROS Other: All systems not noted in ROS Statement are negative. 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 Date of last positivie culture/infection: 2011 MDRO Source:: right arm Past Surgical History: Adenoidectomy, Tonsillectomy Additional Past Surgical History / Comment(s): carpal tunnel, lung washing, right arm abscess, Past Psychological History: ADD/ADHD, Bipolar Smoking Status: Former smoker Past Alcohol Use History: Occasional Past Drug Use History: Marijuana General Exam Limitations: no limitations General appearance: alert, in no apparent distress Head exam: Present: atraumatic, normocephalic Eye exam: Present: normal appearance, PERRL ENT exam: Present: normal exam Neck exam: Present: normal inspection Respiratory exam: Present: normal lung sounds bilaterally. Absent: respiratory distress Cardiovascular Exam: Present: regular rate, normal rhythm GI/Abdominal exam: Absent: distended Extremities exam: Present: other (Subungual hematoma right third digit.) Neurological exam: Present: alert, oriented X3 Psychiatric exam: Present: normal affect, normal mood Skin exam: Present: warm, dry, intact Course Vital Signs 02/22/23 21:02 Temperature 98.2 F Pulse Rate 105 H Respiratory 18 Rate Blood Pressure 133/91 O2 Sat by Pulse 98 Oximetry Procedures - Incision & Drainage Consent Obtained: verbal consent Indication: Subungual hematoma Site: hand I&D Cleaning Method: Alcohol Wipe Sterile Field Used?: No Ultrasound used: No Needle Aspiration Performed?: No Irrigation Performed?: No I&D Drainage Obtained: Blood Culture Obtained?: No Patient Tolerated Procedure: well (Trephination with electrocautery for subungual hematoma) Medical Decision Making - Medical Decision Making Was pt. sent in by a medical professional or institution ([facility]ER[facility] Jacinto, MANAGER THERAPY, urgent care, hospital, or long term...) When possible be specific @ -No Did you speak to anyone other than the patient for history (EMS, parent, family, police, friend...)? What history was obtained from this source @ -No Did you review nursing and triage notes (agree or disagree)? Why? @ -I reviewed and agree with nursing and triage notes Were old charts reviewed (outside hosp., previous admission, EMS record, old EKG, old radiological studies, urgent care reports/EKG's, long term records)? Report findings @ -No old charts were reviewed Differential Diagnosis (chest pain, altered mental status, abdominal pain women, abdominal pain men, vaginal bleeding, weakness, fever, dyspnea, syncope, headache, dizziness, GI bleed, back pain, seizure, CVA, palpatations, mental health, musculoskeletal)? @ -Differential Musculoskeletal Muscular strain, contusion, ligament sprain, fracture, arthritis, septic arthritis, bursitis, cellulitis, muscle spasm, nerve compression, DVT, arterial occlusion, herpes zoster, electrolyte abnormality, tumor.... This is not meant to be in all inclusive list EKG interpreted by me (3pts min.). @ -As above X-rays interpreted by me (1pt min.). @ -X-ray of the right hand negative for displaced fracture dislocation CT interpreted by me (1pt min.). @ -None done U/S interpreted by me (1pt. min.). @ -None done What testing was considered but not performed or refused? (CT, X-rays, U/S, labs)? Why? @ -None What meds were considered but not given or refused? Why? @ -None Did you discuss the management of the patient with other professionals (professionals i.e. Dr., PA, MANAGER THERAPY, lab, RT, psych nurse, social sciences lecturer, shore working supervisor, teacher, special officer automat, rn case mgr)? Give summary @ -No Was smoking cessation discussed for >3mins.? @ -No Was critical care preformed (if so, how long)? @ -No Were there social determinants of health that impacted care today? How? (Homelessness, low income, unemployed, alcoholism, drug addiction, transportation, low edu. Level, literacy, decrease access to med. care, prison, rehab)? @ -No Was there de-escalation of care discussed even if they declined (Discuss DNR or withdrawal of care, Hospice)? DNR status @ -No What co-morbidities impacted this encounter? (DM, HTN, Smoking, COPD, CAD, Cancer, CVA, ARF, Chemo, Hep., AIDS, mental health diagnosis, sleep apnea, morbid obesity)? @ -None Was patient admitted / discharged? Hospital course, mention meds given and route, prescriptions, significant lab abnormalities, going to OR and other pertinent info. @ -37-year-old female with crush injury to the distal phalanx third digit right hand with subungual hematoma. X-ray negative for displaced fracture. Trephination is performed. Patient is stable for discharge with outpatient follow-up and reevaluation. Undiagnosed new problem with uncertain prognosis? @ -No Drug Therapy requiring intensive monitoring for toxicity (Heparin, Nitro, Insulin, Cardizem)? @ -No Were any procedures done? @ -[Trephination of subungual hematoma Diagnosis/symptom? @ -ubungual hematoma Acute, or Chronic, or Acute on Chronic? @ -[acute Uncomplicated (without systemic symptoms) or Complicated (systemic symptoms)? @ -default Side effects of treatment? @ -No Exacerbation, Progression, or Severe Exacerbation? @ -No Poses a threat to life or bodily function? How? (Chest pain, USA, NV, pneumonia, PE, COPD, DKA, ARF, appy, cholecystitis, CVA, Diverticulitis, Homicidal, Suicidal, threat to staff... and all critical care pts) @ -No Disposition Clinical Impression: Subungual hematoma Disposition: HOME SELF-CARE Condition: Good Instructions (If sedation given, give patient instructions): Subungual Hematoma (ED) Is patient prescribed a controlled substance at d/c from ED?: No Referrals: Nonstaff,Physician [Primary Care Provider] - 1-2 days Time of Disposition: 22:07
--- NOTE | 2023-02-22 22:47 | XR ---
EXAMINATION TYPE: XR hand complete RT DATE OF EXAM: 02/22/2023 9:48 PM CLINICAL INDICATION:Female, 37 years old with history of swelling pain; shut right third digit in doo r COMPARISON: None TECHNIQUE: 3 views of the right hand. FINDINGS: Osseous mineralization appears appropriate. No destructive bony lesion. No acute fracture or dislocat ion. Joint spaces are maintained. There appears to be a small soft tissue defect with skin flap at th e palmar aspect of the distal third digit with mild soft tissue swelling of the distal finger. No rad iopaque foreign body is seen. IMPRESSION: No evidence of fracture or dislocation. Small soft tissue injury suspected in the distal third digit. No radiopaque foreign body is seen.
== END 2023-02-22 22:14 | disposition home or self-care (01) ==
LOC: EC 20:52
DX: S90.212A Contusion of left great toe with damage to nail, initial encounter (principal); F12.90 Cannabis use, unspecified, uncomplicated; Z87.891 Personal history of nicotine dependence; Z86.59 Personal history of other mental and behavioral disorders; W23.0XXA Caught, crushed, jammed, or pinched between moving objects, initial encounter
CPT/HCPCS: 11740; 99283

== ENCOUNTER 2023-11-10 21:30 | Inpatient (IN) | payer BC ==
[~2023-11-10 21:30] MED LIST: LORazepam 2 MG/ML INJ ONE
[2023-11-11] MEDS ORDERED: LORazepam 2 MG/ML INJ ONE ×3 (04:35→22:04)
[2023-11-11] MEDS ORDERED: LACOSAMIDE 50 MG TABLET ONE ×2 (12:16→22:05)
[2023-11-12] MEDS ORDERED: MAGNESIUM SULFATE-D5W PMX 100 ML IVPB ONE (04:45)
[2023-11-12] MEDS ORDERED: ACETAMINOPHEN TAB 325 MG TAB ONE (08:27)
[2023-11-12] MEDS ORDERED: LORazepam 2 MG/ML INJ ONE ×4 (08:28→20:54)
[2023-11-12] MEDS ORDERED: LACOSAMIDE 50 MG TABLET ONE ×2 (08:35→20:20)
[2023-11-12] MEDS ORDERED: POTASSIUM CHLORIDE ER 20 MEQ TAB.ER PO ONE (10:59)
[2023-11-12] MEDS ORDERED: HEPARIN SODIUM,PORCINE 5,000 UNIT/ML 1 ML VIAL ONE (20:19)
[2023-11-13] MEDS ORDERED: ACETAMINOPHEN TAB 325 MG TAB ONE (00:52)
[2023-11-13] MEDS ORDERED: LORazepam 2 MG/ML INJ ONE ×5 (01:07→20:55)
[2023-11-13] MEDS ORDERED: LACOSAMIDE 50 MG TABLET ONE ×2 (08:36→20:43)
[2023-11-13] MEDS ORDERED: HEPARIN SODIUM,PORCINE 5,000 UNIT/ML 1 ML VIAL ONE ×2 (08:37→20:44)
[2023-11-14] MEDS ORDERED: LORazepam 2 MG/ML INJ ONE ×5 (00:04→08:41)
[2023-11-14] MEDS ORDERED: HEPARIN SODIUM,PORCINE 5,000 UNIT/ML 1 ML VIAL ONE (08:42)
[2023-11-14] MEDS ORDERED: LACOSAMIDE 50 MG TABLET ONE (08:42)
== END 2023-11-14 13:18 | disposition home or self-care (01) | DRG 101 ==
LOC: DISRECOVER 21:30
PROVIDERS: ADMIT Hospitalist; ATTEND Hospitalist
DX: G40.509 Epileptic seizures related to external causes, not intractable, without status epilepticus (principal); F10.139 Alcohol abuse with withdrawal, unspecified; Z87.820 Personal history of traumatic brain injury; V49.69XS Unspecified car occupant injured in collision with other motor vehicles in traffic accident, sequela; K21.9 Gastro-esophageal reflux disease without esophagitis; F90.9 Attention-deficit hyperactivity disorder, unspecified type; F31.9 Bipolar disorder, unspecified; F11.11 Opioid abuse, in remission; Z86.19 Personal history of other infectious and parasitic diseases; K70.10 Alcoholic hepatitis without ascites; E78.5 Hyperlipidemia, unspecified; Z86.14 Personal history of Methicillin resistant Staphylococcus aureus infection; Z87.891 Personal history of nicotine dependence; Z79.899 Other long term (current) drug therapy
CPT/HCPCS: 96374; 99285

== ENCOUNTER 2023-11-17 12:50 | Observation (INO) | payer BC ==
[2023-11-17] MEDS ORDERED: LORazepam 2 MG/ML INJ ONE (23:55)
[2023-11-18] MEDS ORDERED: levETIRAcetam 500 MG TAB ONE ×2 (01:27→10:09)
[2023-11-18] MEDS ORDERED: PANTOPRAZOLE 40 MG TABLET PO ONE (06:34)
[2023-11-18] MEDS ORDERED: ENOXAPARIN 40 MG/0.4 ML SYRINGE SQ ONE (10:08)
[2023-11-18] MEDS ORDERED: FAMOTIDINE 20 MG TAB ONE (10:09)
[2023-11-18] MEDS ORDERED: MULTIVITAMINS, THERA 1 EACH TAB ONE (10:21)
[2023-11-18] MEDS ORDERED: LORazepam 2 MG/ML INJ ONE ×5 (10:33→22:05)
[2023-11-18] MEDS ORDERED: ACETAMINOPHEN TAB 325 MG TAB ONE (17:31)
[2023-11-19] MEDS ORDERED: LORazepam 2 MG/ML INJ ONE ×4 (00:03→23:18)
[2023-11-19] MEDS ORDERED: levETIRAcetam 500 MG TAB ONE (00:25)
[2023-11-19] MEDS ORDERED: ENOXAPARIN 40 MG/0.4 ML SYRINGE SQ ONE (10:08)
[2023-11-19] MEDS ORDERED: PANTOPRAZOLE 40 MG TABLET PO ONE (10:09)
[2023-11-19] MEDS ORDERED: FAMOTIDINE 20 MG TAB ONE ×2 (10:09→21:55)
[2023-11-19] MEDS ORDERED: ACETAMINOPHEN TAB 325 MG TAB ONE (21:55)
[2023-11-19] MEDS ORDERED: THIAMINE 100 MG TAB ONE (21:55)
[2023-11-20] MEDS ORDERED: LORazepam 2 MG/ML INJ ONE ×3 (06:08→20:14)
[2023-11-20] MEDS ORDERED: PANTOPRAZOLE 40 MG TABLET PO ONE (08:13)
[2023-11-20] MEDS ORDERED: levETIRAcetam 500 MG TAB ONE ×2 (08:13→20:11)
[2023-11-20] MEDS ORDERED: FAMOTIDINE 20 MG TAB ONE ×2 (08:13→20:11)
[2023-11-20] MEDS ORDERED: THIAMINE 100 MG TAB ONE ×2 (08:13→20:11)
[2023-11-20] MEDS ORDERED: ENOXAPARIN 40 MG/0.4 ML SYRINGE SQ ONE (08:13)
[2023-11-20] MEDS ORDERED: MULTIVITAMINS, THERA 1 EACH TAB ONE (08:13)
[2023-11-20] MEDS ORDERED: LORazepam 1 MG TAB ONE (22:26)
[2023-11-20] MEDS ORDERED: chlordiazePOXIDE 25 MG CAP ONE (22:27)
[2023-11-20] MEDS ORDERED: SODIUM CHLORIDE 0.9% 1,000 ML BAG ONE (23:59)
[2023-11-21] MEDS ORDERED: chlordiazePOXIDE 25 MG CAP ONE ×2 (06:29→14:39)
[2023-11-21] MEDS ORDERED: LORazepam 1 MG TAB ONE (06:36)
[2023-11-21] MEDS ORDERED: FAMOTIDINE 20 MG TAB ONE (07:43)
[2023-11-21] MEDS ORDERED: PANTOPRAZOLE 40 MG TABLET PO ONE (07:43)
[2023-11-21] MEDS ORDERED: MULTIVITAMINS, THERA 1 EACH TAB ONE (07:44)
[2023-11-21] MEDS ORDERED: levETIRAcetam 500 MG TAB ONE (07:44)
[2023-11-21] MEDS ORDERED: THIAMINE 100 MG TAB ONE (07:44)
[2023-11-21] MEDS ORDERED: ENOXAPARIN 40 MG/0.4 ML SYRINGE SQ ONE (07:44)
== END 2023-11-21 18:50 ==
LOC: 5NMEDONC 12:50 → UNDOADMOB 12:50 → 5NMEDONC 22:50
PROVIDERS: ADMIT Internal Medicine; ATTEND Internal Medicine
DX: F10.10 Alcohol abuse, uncomplicated (principal); F32.A Depression, unspecified; F41.9 Anxiety disorder, unspecified; G40.909 Epilepsy, unspecified, not intractable, without status epilepticus
CPT/HCPCS: 93005

== ENCOUNTER 2024-01-27 13:19 | Observation (INO) | payer BC ==
[2024-01-27] MEDS ORDERED: LORazepam 2 MG/ML INJ IV PRN ×2 (13:29)
[2024-01-27] MEDS ORDERED: LORazepam 1 MG TAB PO PRN (13:29)
[2024-01-27] MEDS ORDERED: LORazepam 0.5 MG TAB PO PRN (13:29)
--- NOTE | 2024-01-27 13:41 | ED ---
Alcohol HPI - General Chief Complaint: Alcohol Stated Complaint: withdrawl, seizure prone Time Seen by Provider: 01/27/24 13:29 Source: patient, RN notes reviewed, old records reviewed Mode of arrival: ambulatory Limitations: no limitations - History of Present Illness Initial Comments: This is a 38-year-old female to the ER. This patient presents today for alcohol intoxication with alcohol related withdrawal seizures. Patient is attempting [place] access but she is unable to clear from seizure perspective MD Complaint: alcohol intoxication, alcohol withdrawal, alcohol dependence, medical clearance for detox facility Last Drink: just [employer] -: minute(s), hour(s) Previous Visits for Alcohol Intoxication?: Yes Recent Trauma: Yes Associated Symptoms: denies other symptoms Treatments Prior to Arrival: none Chronic Alcohol Use: Yes - Related Data Home Medications Medication Instructions Recorded Confirmed medroxyPROGESTERone [Depo-Provera] 150 mg IM Q84D 05/29/21 01/27/24 Albuterol Inhaler [Ventolin Hfa 1 - 2 puff INHALATION RT-Q6H PRN 01/09/23 01/27/24 Inhaler] FLUoxetine HCL 40 mg PO DAILY 01/09/23 01/27/24 FLUoxetine HCL [PROzac] 20 mg PO DAILY 01/09/23 01/27/24 Topiramate [Topamax] 100 mg PO DAILY 01/27/24 01/27/24 Allergies Allergy/AdvReac Type Severity Reaction Status Date / Time No Known Allergies Allergy Verified 01/27/24 13:26 Review of Systems ROS Statement: Those systems with pertinent positive or pertinent negative responses have been documented in the HPI. ROS Other: All systems not noted in ROS Statement are negative. 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 Date of last positivie culture/infection: 2011 MDRO Source:: right arm Past Surgical History: Adenoidectomy, Tonsillectomy Additional Past Surgical History / Comment(s): carpal tunnel, lung washing, right arm abscess, Past Psychological History: ADD/ADHD, Bipolar Smoking Status: Former smoker Past Alcohol Use History: Abuse, Daily, Heavy Past Drug Use History: Marijuana General Exam Limitations: no limitations General appearance: alert, in no apparent distress Head exam: Present: atraumatic, normocephalic, normal inspection Eye exam: Present: normal appearance, PERRL, EOMI. Absent: scleral icterus, conjunctival injection, periorbital swelling ENT exam: Present: normal exam, mucous membranes moist Neck exam: Present: normal inspection. Absent: tenderness, meningismus, ly mphadenopathy Respiratory exam: Present: normal lung sounds bilaterally. Absent: respiratory distress, wheezes, rales, rhonchi, stridor Cardiovascular Exam: Present: regular rate, normal rhythm, normal heart sounds. Absent: systolic murmur, diastolic murmur, rubs, gallop, clicks GI/Abdominal exam: Present: soft, normal bowel sounds. Absent: distended, tenderness, guarding, rebound, rigid Extremities exam: Present: normal inspection, full ROM, normal capillary refill. Absent: tenderness, pedal edema, joint swelling, calf tenderness Back exam: Present: normal inspection Neurological exam: Present: alert, oriented X3, CN II-XII intact Psychiatric exam: Present: normal affect, normal mood Skin exam: Present: warm, dry, intact, normal color. Absent: rash Course Vital Signs 01/27/24 01/27/24 01/27/24 13:22 18:49 19:09 Temperature 99.0 F 98.7 F Pulse Rate 118 H 115 H 111 H Respiratory 18 18 18 Rate Blood Pressure 129/83 106/64 108/63 O2 Sat by Pulse 96 95 96 Oximetry - Reevaluation(s) Reevaluation #1: 01/27/24 13:48 Medical records reviewed Reevaluation #2: 01/27/24 13:48 Patient symptoms unchanged Reevaluation #3: 01/27/24 14:21 Patient informed of results questions answered Reevaluation #4: Was pt. sent in by a medical professional or institution (, PA, [employer], urgent care, hospital, or [facility]...) When possible be specific @ -no Did you speak to anyone other than the patient for history (EMS, parent, family, police, friend...)? What history was obtained from this source @ -no Did you review nursing and triage notes (agree or disagree)? Why? @ -agree Are old charts reviewed (outside hosp., previous admission, EMS record, old EKG, old radiological studies, urgent care reports/EKG's, [facility] records)? Report findings @ -yes Differential Diagnosis (chest pain, altered mental status, abdominal pain women, abdominal pain men, vaginal bleeding, weakness, fever, dyspnea, syncope, headache, dizziness, GI bleed, back pain, seizure, CVA, palpatations, mental health, musculoskeletal)? @ -prior EKG interpreted by me (3pts min.). @ -no X-rays interpreted by me (1pt min.). @ -no CT interpreted by me (1pt min.). @ -no U/S interpreted by me (1pt. min.). @ -no What testing was considered but not performed or refused? (CT, X-rays, U/S, labs)? Why? @ -none What meds were considered but not given or refused? Why? @ -none Did you discuss the management of the patient with other professionals (professionals i.e. , PA, [employer], lab, RT, psych nurse, outreach and education social worker, loose hand packer, teacher, supervisor dog license officer, pillowcase cutter)? Give summary @ -no Was smoking cessation discussed for >3mins.? @ -no Was critical care preformed (if so, how long)? @ -no Were there social determinants of health that impacted care today? How? (Homelessness, low income, unemployed, alcoholism, drug addiction, transportation, low edu. Level, literacy, decrease access to med. care, alf, rehab)? @ -none Was there de-escalation of care discussed even if they declined (Discuss DNR or withdrawal of care, Hospice)? DNR status @ -no What co-morbidities impacted this encounter? (DM, HTN, Smoking, COPD, CAD, Cancer, CVA, ARF, Chemo, Hep., AIDS, mental health diagnosis, sleep apnea, morbid obesity)? @ -none Was patient admitted / discharged? Hospital course, mention meds given and route, prescriptions, significant lab abnormalities, going to OR and other pertinent info. @ - 38 female to the ER for evaluation of significant and severe alcohol intoxication, with history of alcohol withdrawal seizure. Patient will be admitted for further evaluation and monitoring Discharge Undiagnosed new problem with uncertain prognosis? @ -no Drug Therapy requiring intensive monitoring for toxicity (Heparin, Nitro, Insulin, Cardizem)? @ -no Were any procedures done? @ -no Diagnosis/symptom? @ -Alcohol intoxication Acute, or Chronic, or Acute on Chronic? @ -Acute Uncomplicated (without systemic symptoms) or Complicated (systemic symptoms)? @ -Complicated Side effects of treatment? @ -no Exacerbation, Progression, or Severe Exacerbation? @ -exacerbation Poses a threat to life or bodily function? How? (Chest pain, USA, CT, pneumonia, PE, COPD, DKA, ARF, appy, cholecystitis, CVA, Diverticulitis, Homicidal, Suicidal, threat to staff... and all critical care pts) @ -yes severe intoxication Reevaluation #5: Differential Altered Mental Status: Hypoglycemia, DKA, hypercapnia, ETOH, overdose, CO poisoning, trauma, myxedema coma, HTN encephalopathy, infection, encephalitis, psychosis, intercranial hemorrhage, hepatic encephalopathy, meningitis, CVA, this is not meant to be an all-inclusive list - Consultations Consultation #1: Spoke with [facility] who agrees to admit this patient Medical Decision Making - Medical Decision Making 38 female to the ER for evaluation of significant and severe alcohol intoxication, with history of alcohol withdrawal seizure. Patient will be admitted for further evaluation and monitoring - Lab Data Result diagrams: 01/27/24 14:17 01/27/24 14:17 Lab Results 01/27/24 01/27/24 Range/Units 14:17 14:17 WBC 4.3 (3.8-10.6) k/uL RBC 4.61 (3.80-5.40) m/uL Hgb 16.0 (11.4-16.0) gm/dL Hct 46.8 H (34.0-46.0) % MCV 101.6 H (80.0-100.0) fL MCH 34.6 (25.0-35.0) pg MCHC 34.1 (31.0-37.0) g/dL RDW 14.3 (11.5-15.5) % Plt Count 195 (150-450) k/uL MPV 7.2 Neutrophils % 65 % Lymphocytes % 25 % Monocytes % 5 % Eosinophils % 2 % Basophils % 1 % Neutrophils # 2.8 (1.3-7.7) k/uL Lymphocytes # 1.1 (1.0-4.8) k/uL Monocytes # 0.2 (0-1.0) k/uL Eosinophils # 0.1 (0-0.7) k/uL Basophils # 0.1 (0-0.2) k/uL Macrocytosis Slight Sodium 142 (137-145) mmol/L Potassium 3.7 (3.5-5.1) mmol/L Chloride 108 H (98-107) mmol/L Carbon Dioxide 20 L (22-30) mmol/L Anion Gap 14 mmol/L BUN 9 (7-17) mg/dL Creatinine 0.61 (0.52-1.04) mg/dL Est GFR (CKD-EPI)AfAm >90 (>60 ml/min/1.73 sqM) Est GFR (CKD-EPI)NonAf >90 (>60 ml/min/1.73 sqM) Glucose 100 H (74-99) mg/dL Calcium 8.9 (8.4-10.2) mg/dL Phosphorus 3.3 (2.5-4.5) mg/dL Magnesium 1.8 (1.6-2.3) mg/dL Total Bilirubin 1.2 (0.2-1.3) mg/dL AST 189 H (14-36) U/L ALT 157 H (4-34) U/L Alkaline Phosphatase 87 (38-126) U/L Total Protein 7.6 (6.3-8.2) g/dL Albumin 4.8 (3.5-5.0) g/dL Lipase 57 (23-300) U/L Serum Alcohol 292 H* mg/dL Disposition Clinical Impression: Alcoholic intoxication, Alcohol withdrawal syndrome, Alcohol withdrawal seizure Disposition: ADMITTED IP TO THIS HOSP Condition: Fair Is patient prescribed a controlled substance at d/c from ED?: No Time of Disposition: 14:00
[2024-01-27] MEDS: SODIUM CHLORIDE 0.9% 500 ML 500 ML IV STA (14:16)
[2024-01-27] MEDS: SODIUM CHLORIDE 0.9% 1,000 ML IV STA (14:16)
[2024-01-27] MEDS ORDERED: NALOXONE 0.4 MG/ML 1 ML VIAL IV PRN (14:19)
[2024-01-27 14:33] LABS: Basophils # (A) 0.1 k/uL (0-0.2); Basophils % (A) 1 %; Eosinophils # (A) 0.1 k/uL (0-0.7); Eosinophils % (A) 2 %; HCT 46.8 % (34.0-46.0); Lymphocytes # (A) 1.1 k/uL (1.0-4.8); Lymphocytes % (A) 25 %; MCH 34.6 pg (25.0-35.0); MCHC 34.1 g/dL (31.0-37.0); MCV 101.6 fL (80.0-100.0); Macrocytosis Slight; Mean Platelet Volume 7.2; Monocytes # (A) 0.2 k/uL (0-1.0); Monocytes % (A) 5 %; Neutrophils # (A) 2.8 k/uL (1.3-7.7); Neutrophils % (A) 65 %; Platelet Count 195 k/uL (150-450); RBC 4.61 m/uL (3.80-5.40); RDW 14.3 % (11.5-15.5); WBC 4.3 k/uL (3.8-10.6)
[2024-01-27 14:47] LABS: ALT 157 U/L (4-34); AST 189 U/L (14-36); African American GFR (CKD) >90 (>60 ml/min/1.73 sqM); Albumin 4.8 g/dL (3.5-5.0); Alkaline Phosphatase 87 U/L (38-126); Anion Gap 14 mmol/L; Blood Urea Nitrogen 9 mg/dL (7-17); Calcium 8.9 mg/dL (8.4-10.2); Carbon Dioxide 20 mmol/L (22-30); Chloride 108 mmol/L (98-107); Glucose 100 mg/dL (74-99); Lipase 57 U/L (23-300); Magnesium 1.8 mg/dL (1.6-2.3); Non-African American GFR(CKD) >90 (>60 ml/min/1.73 sqM); Phosphorus 3.3 mg/dL (2.5-4.5); Potassium 3.7 mmol/L (3.5-5.1); Sodium 142 mmol/L (137-145); Total Bilirubin 1.2 mg/dL (0.2-1.3); Total Protein 7.6 g/dL (6.3-8.2)
[2024-01-27 14:54] LABS: Alcohol 292 mg/dL
[2024-01-27] MEDS: DEXTROSE 5%-0.45% NACL 1,000 ML IV SCH (15:34)
[2024-01-27] MEDS: LORazepam 1 MG TAB PO PRN ×2 (15:35→19:21)
[2024-01-27] MEDS: ONDANSETRON 4 MG/2 ML VIAL IVP PRN (19:20)
[2024-01-27] MEDS: LORazepam 2 MG/ML INJ IV PRN (20:30)
[2024-01-27] MEDS: ACETAMINOPHEN TAB 325 MG TAB PO PRN (23:27)
[2024-01-28] MEDS: LORazepam 1 MG TAB PO PRN (04:46)
[2024-01-28] MEDS: FOLIC ACID 1 MG TAB PO SCH (08:00)
[2024-01-28] MEDS: MULTIVITAMINS, THERA 1 EACH TAB PO SCH (08:00)
[2024-01-28] MEDS ORDERED: ALBUTEROL NEBULIZED 2.5 MG/3 ML INHALATION PRN (08:08)
[2024-01-28] MEDS: PANTOPRAZOLE 40 MG/10 ML VIAL IV SCH (08:52)
[2024-01-28] MEDS ORDERED: FLUoxetine HCL 20 MG CAP PO SCH (09:00)
[2024-01-28] MEDS: TOPIRAMATE 100 MG TAB PO SCH (10:09)
[2024-01-28] MEDS: FLUoxetine HCL 20 MG CAP PO SCH (10:09)
--- NOTE | 2024-01-28 16:40 | P.HPIM ---
History of Present Illness history of present illness; 38-year-old female with a past medical history of GERD and alcohol use disorder presents with need for medical clearance to alcoholic rehab. Patient reports that she was attempting to go to [place] but was unable to be cleared medically due to withdrawal seizures in the past. Patient reports she decided to come to the hospital to get treatment so then she could be cleared to go to [place]. Initial lab work from the ER was significant for WBC 4.3, hemoglobin 16, MCV under 1.6, bicarb 20, glucose 100, AST 189, ALT 157, lipase 57, and serum alcohol 292. Patient admitted to internal medicine service REVIEW OF SYSTEMS: CONSTITUTIONAL: No fever, no malaise, no fatigue. HEENT: No recent visual problems or hearing problems. Denied any sore throat. CARDIOVASCULAR: No chest pain, orthopnea, PND, no palpitations, no syncope. PULMONARY: No shortness of breath, no cough, no hemoptysis. GASTROINTESTINAL: No diarrhea, no nausea, no vomiting, no abdominal pain. NEUROLOGICAL: No headaches, no weakness, no numbness. HEMATOLOGICAL: Denies any bleeding or petechiae. GENITOURINARY: Denies any burning micturition, frequency, or urgency. MUSCULOSKELETAL/RHEUMATOLOGICAL: Denies any joint pain, swelling, or any muscle pain. ENDOCRINE: Denies any polyuria or polydipsia. The rest of the 14-point review of systems is negative. PHYSICAL EXAMINATION: GENERAL: The patient is alert and oriented x3, not in any acute distress. Well developed, well nourished. HEENT: Pupils are round and equally reacting to light. EOMI. No scleral icterus. No conjunctival pallor. Normocephalic, atraumatic. No pharyngeal erythema. No thyromegaly. CARDIOVASCULAR: S1 and S2 present. No murmurs, rubs, or gallops. PULMONARY: Chest is clear to auscultation b/l, no wheezing or crackles. ABDOMEN: Soft, nontender, nondistended, normoactive bowel sounds. No palpable organomegaly. MUSCULOSKELETAL: No joint swelling or deformity. EXTREMITIES: No cyanosis, clubbing, or pedal edema. NEUROLOGICAL: Gross neurological examination did not reveal any focal deficits. SKIN: No rashes. Assessment & Plan: # Acute alcoholic hepatitis: #Alcohol withdrawal Neurology consulted by ER, will follow-up further recommendations Continue CICA protocol Seizure precautions 4 g Ativan given yesterday, 3 g given so far today Most recent CIWA score 7, patient has been ranging between 3 and 9 #GERD: Continue Protonix 40 mg IV daily F: D5 half-normal saline E: Folate N: Regular diet A: Normally ambulates unassisted at home DVT ppx: Lovenox 40 SQ daily GI ppx: Protonix 40 mg IV daily Dispo: Pending clinical course Ayesha Calderon MD PGY-1 FM Dictation was produced using [employer] dictation software. please excuse any grammatical, word or spelling errors. 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 Date of last positivie culture/infection: 2011 MDRO Source:: right arm Past Surgical History: Adenoidectomy, Tonsillectomy Additional Past Surgical History / Comment(s): carpal tunnel, lung washing, right arm abscess Past Anesthesia/Blood Transfusion Reactions: No Reported Reaction Past Psychological History: ADD/ADHD, Bipolar Smoking Status: Former smoker Past Alcohol Use History: Abuse, Daily, Heavy Past Drug Use History: Marijuana Medications and Allergies Home Medications Medication Instructions Recorded Confirmed Type medroxyPROGESTERone [Depo-Provera] 150 mg IM Q84D 05/29/21 01/27/24 History Albuterol Inhaler [Ventolin Hfa 1 - 2 puff INHALATION RT-Q6H PRN 01/09/23 01/27/24 History Inhaler] FLUoxetine HCL 40 mg PO DAILY 01/09/23 01/27/24 History FLUoxetine HCL [PROzac] 20 mg PO DAILY 01/09/23 01/27/24 History Topiramate [Topamax] 100 mg PO DAILY 01/27/24 01/27/24 History Allergies Allergy/AdvReac Type Severity Reaction Status Date / Time No Known Allergies Allergy Verified 01/27/24 13:26 Physical Exam Vitals: Vital Signs Temp Pulse Pulse Resp BP BP Pulse Ox 01/28/24 07:14 98.7 F 95 18 156/95 94 L 01/28/24 01:36 98.6 F 110 H 16 127/82 97 01/27/24 20:00 98.9 F 109 H 16 134/86 95 01/27/24 19:09 111 H 18 108/63 96 01/27/24 18:49 98.7 F 115 H 18 106/64 95 01/27/24 13:22 99.0 F 118 H 18 129/83 96 Intake and Output 01/27/24 01/28/24 01/28/24 22:59 06:59 14:59 Intake Total 550 Balance 550 Intake: Intake, IV Titration 550 Amount Dextrose 5%-0.45% NaCl 1, 550 000 ml @ 75 mls/hr IV . [id number] [facility] Rx#:[id number] Other: Voiding Method Toilet # Voids 3 Weight 72.575 kg Results CBC & Chem 7: 01/27/24 14:17 01/27/24 14:17 Labs: Abnormal Lab Results - Last 24 Hours (Table) 01/27/24 01/27/24 Range/Units 14:17 14:17 Hct 46.8 H (34.0-46.0) % MCV 101.6 H (80.0-100.0) fL Chloride 108 H (98-107) mmol/L Carbon Dioxide 20 L (22-30) mmol/L Glucose 100 H (74-99) mg/dL AST 189 H (14-36) U/L ALT 157 H (4-34) U/L Serum Alcohol 292 H* mg/dL Thrombosis Risk Factor Assmnt - Choose All That Apply Any of the Below Risk Factors Present?: Yes Each Factor Represents 1 point: Obesity (BMI >25) Thrombosis Risk Factor Assessment Total Risk Factor Score: 1 Thrombosis Risk Factor Assessment Level: Low Risk
[2024-01-28 19:09] VITALS: RESP 16
[2024-01-29 01:42] VITALS: BP 129/84; PULSE 84; TEMP 98.6
--- NOTE | 2024-01-29 08:18 | P.DS ---
Providers Date of admission: 01/27/24 14:21 Attending physician: Ganesh Akers Consults: 01/27/24 14:19 Consult Physician Routine Consulting Provider: Marina Delatorre Consult Reason/Comments: h/o seizure Do you want consulting provider notified?: Yes Primary care physician: Physician Nonstaff Hospital Course: Discharge Diagnosis: Acute alcoholic hepatitis Alcohol withdrawal Alcohol use disorder GERD Hospital Course: history of present illness; 38-year-old female with a past medical history of GERD and alcohol use disorder presents with need for medical clearance to alcoholic rehab. Patient reports that she was attempting to go to [place] but was unable to be cleared medically due to withdrawal seizures in the past. Patient reports she decided to come to the hospital to get treatment so then she could be cleared to go to [place]. Initial lab work from the ER was significant for WBC 4.3, hemoglobin 16, MCV under 1.6, bicarb 20, glucose 100, AST 189, ALT 157, lipase 57, and serum alcohol 292. Admitted to the hospital the patient was placed on CIWA protocol and received Ativan for her withdrawal symptoms. Patient did not have any seizure-like activity while admitted. In addition to receiving Ativan the patient's home meds were continued while admitted. On the day of discharge patient was medically and hemodynamically stable for discharge. Patient is discharged to home where she plans to go directly to rehab from the hospital. Patient is advised to follow-up with her PCP outpatient. Pt seen and examined at bedside: Patient excited the prospect of going to rehab. Vital signs reveiwed and stable: General: non toxic, no distress, appears at stated age, normal weight Derm: no unusual rashes/lesions, warm Head: atraumatic, normocephalic, symmetric Eyes: EOMI, no lid lag, anicteric sclera, pupils equal round reactive to light ENT: Nose and ears atraumatic Neck: No cervical lymphadenopathy, trachea midline, supple Mouth: no lip lesion, mucus membranes moist Cardiovascular: S1S2 reg, no murmur, positive dorsalis pedis pulse bilateral, no edema Lungs: Decreased air entry bilaterally, no rhonchi, no rales, no accessory muscle use Abdominal: soft, nontender to palpation, no guarding Ext: muscle strength 5 out of 5 in all 4 extremities grossly, no gross muscle atrophy, no contractures, Neuro: CN II-XI grossly intact, no gross focal neuro deficits Psych: Alert, oriented, appropriate affect A total of greater than 30 minutes were spent preparing this complex discarge summary. Patient was discharged on 01/28/2024, 16: 59. Patient Condition at Discharge: Fair Plan - Discharge Summary Discharge Rx Participant: No New Discharge Prescriptions: Continue medroxyPROGESTERone [Depo-Provera] 150 mg IM Q84D FLUoxetine HCL [PROzac] 20 mg PO DAILY Albuterol Inhaler [Ventolin Hfa Inhaler] 1 - 2 puff INHALATION RT-Q6H PRN PRN Reason: Shortness Of Breath FLUoxetine HCL 40 mg PO DAILY Topiramate [Topamax] 100 mg PO DAILY Discharge Medication List medroxyPROGESTERone [Depo-Provera] 150 mg IM Q84D 05/29/21 [History] Albuterol Inhaler [Ventolin Hfa Inhaler] 1 - 2 puff INHALATION RT-Q6H PRN 01/09/23 [History] FLUoxetine HCL 40 mg PO DAILY 01/09/23 [History] FLUoxetine HCL [PROzac] 20 mg PO DAILY 01/09/23 [History] Topiramate [Topamax] 100 mg PO DAILY 01/27/24 [History] Follow up Appointment(s)/Referral(s): Nonstaff,Physician [Primary Care Provider] - 1-2 days (Establish PCP and follow-up with medical doctor post discharge from [facility]. ) Patient Instructions/Handouts: Abuse of Alcohol (DC), Alcohol Withdrawal (DC) Activity/Diet/Wound Care/Special Instructions: Patient discharge 01/29/24 at 0600. Expected to arrive at [facility] in [place] at 0900 on 01/29/24 for alcohol rehabilitation services. Discharge/Stand Alone Forms: AA Meetings [place], Community Resources, Outpatient Counseling Discharge Disposition: HOME SELF-CARE
[2024-01-29] MEDS ORDERED: ENOXAPARIN 40 MG/0.4 ML SYRINGE SQ SCH (09:00)
[2024-01-29] MEDS ORDERED: TOPIRAMATE 25 MG TAB PO SCH (21:00)
--- NOTE | 2024-02-02 11:01 | P.CNNES ---
History of Present Illness Consult date: 01/28/24 Requesting physician: Onofre Merino Reason for Consult: h/o seizure History of Present Illness: Patient is a 38-year-old female came to the hospital yesterday at 1:19 PM for alcohol withdrawal. Patient states that she stopped drinking alcohol day before yesterday. She apparently drinks a fifth a day of Gin mata or Kennedy, or Teeto's vodka every day for last 1-2 years. Patient is attempting to go to [place], but she needs medical clearance from seizure standpoint. Patient states her first seizure occurred in 2012 or . She has history of focal as well as grand mal seizures. She had about less than 10 grand mal seizures in these 10 years. However she has countless amount of focal seizures in these years. Patient claims that she was diagnosed with epilepsy about 3 years before she started drinking alcohol heavily. Patient states that her first 3 seizures occurred in sleep, when her tried to wake her up during conversion. She did bite her tongue. The seizure lasted for a few minutes. She woke up feeling "like crap". Patient states her focal seizures consist of spell, in which she would be sitting there, and her vision messes up and she goes to a [place]. When she comes out of it and whole-body hurts and she cries and has westley vu feeling, feeling weird postictally, and she calls up like a ball. This whole episode lasts for "few minutes". Patient says that her focal seizures occurs about once every couple weeks. Patient states her last seizure was in May 2023, she had a grand mal seizure. She is not sure if it was an alcohol withdrawal seizure, although she has not drank alcohol the day. She was sitting at the doctor's appointment and she started acting weird started laughing for no reason and then she fell out of chair and had a seizure lost bowel and bladder control. She was still told that she was screaming and crying. Patient says that she was sent home and she laid down. She was not taken to the hospital because she was in "mental health unit". Vital signs on arrival blood pressure 129/83, pulse rate 118, temperature 99.0. Patient has been afebrile. Blood test shows normal CBC with elevated MCV 101.6. Basic metabolic panel is normal. AST 189, ALT 157. Blood alcohol level 292. Patient had a previous EEG on 03/11/2017, which revealed focal right frontal lobe fine sharp wave discharge. This finding suggest possibility of underlying seizure disorder. Patient had a previous MRI of the brain 04/14/2017 which was n ormal. Home medications include Topamax 100 mg daily, fluoxetine 60 mg in the morning, albuterol Depo-Provera. Patient follows up with Dr. Chu at [facility] and his appointment on Friday. On reviewing records, it appears patient was evaluated in [facility] on 11/17/2023 for alcohol withdrawal. It was mentioned that reported that she was just admitted in [facility] last week (in mental health unit) and stayed there for 4 days but then left AGAINST MEDICAL ADVICE. After she was discharged from [facility], she started drinking again. Her blood alcohol level was 174. Review of Systems All pertinent positive and negative urinalysis mentioned in HPI, otherwise unremarkable. 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 Date of last positivie culture/infection: 2011 MDRO Source:: right arm Past Surgical History: Adenoidectomy, Tonsillectomy Additional Past Surgical History / Comment(s): carpal tunnel, lung washing, right arm abscess Past Anesthesia/Blood Transfusion Reactions: No Reported Reaction Past Psychological History: ADD/ADHD, Bipolar Smoking Status: Former smoker Past Alcohol Use History: Abuse, Daily, Heavy Past Drug Use History: Marijuana Medications and Allergies Home Medications Medication Instructions Recorded Confirmed Type medroxyPROGESTERone [Depo-Provera] 150 mg IM Q84D 05/29/21 01/27/24 History Albuterol Inhaler [Ventolin Hfa 1 - 2 puff INHALATION RT-Q6H PRN 01/09/23 01/27/24 History Inhaler] FLUoxetine HCL 40 mg PO DAILY 01/09/23 01/27/24 History FLUoxetine HCL [PROzac] 20 mg PO DAILY 01/09/23 01/27/24 History Topiramate [Topamax] 100 mg PO DAILY 01/27/24 01/27/24 History Allergies Allergy/AdvReac Type Severity Reaction Status Date / Time No Known Allergies Allergy Verified 01/27/24 13:26 Physical Examination - Vital Signs Vital Signs: Vital Signs Temp Pulse Resp BP Pulse Ox 01/28/24 19:08 98.5 F 90 16 140/87 94 L 01/28/24 13:13 98.2 F 83 19 145/95 98 01/28/24 08:00 95 01/28/24 07:14 98.7 F 95 18 156/95 94 L 01/28/24 01:36 98.6 F 110 H 16 127/82 97 Intake and Output 01/28/24 01/28/24 01/28/24 06:59 14:59 22:59 Intake Total 550 540 Balance 550 540 Intake: Intake, IV Titration 550 Amount Dextrose 5%-0.45% NaCl 1, 550 000 ml @ 75 mls/hr IV . [id number] EMANUEL Rx#:[id number] Oral 540 Other: Voiding Method Toilet Toilet # Voids 3 Patient is a young female, in no acute distress. Patient is alert awake oriented to time place and person. Speech and language functions are normal. Patient can name and repeat very well. No aphasia or dysarthria. Attention, concentration and fund of knowledge is adequate. On cranial nerve examination, pupils are equal, round and reacting to light, visual cortes are full on confrontation, with no neglect on double simultaneous stimulation. Extraocular muscles are intact with no nystagmus. Face is symmet ricardo, tongue protrudes to the midline. Palatal elevation and sensation normal, hearing and shoulder shrug normal, facial sensation normal. On muscle strength testing, there is no pronator drift and the strength is normal in arms and legs distally and proximally. No obvious tremors of outstretched hands. Deep tendon reflexes are symmetric 1+ and plantars downgoing. Sensory to touch is equal with no neglect on double simultaneous stimulation. Cerebellar function showed no ataxia for [id number] testing. No dysdiadochokinesia. No ataxia for [id number] testing on either side. Tone a nd bulk of muscles normal. Gait deferred.. On general examination, there is no carotid bruit or murmur, S1-S2 audible. Chest is clear on consultation. Abdomen is soft nontender. No organomegaly, bowel sounds present. Peripheral pulses are present. No peripheral edema. Results - Laboratory Findings CBC and BMP: 01/27/24 14:17 01/27/24 14:17 Abnormal Lab Findings: Abnormal Labs 01/27/24 01/27/24 14:17 14:17 Hct 46.8 H MCV 101.6 H Chloride 108 H Carbon Dioxide 20 L Glucose 100 H AST 189 H ALT 157 H Serum Alcohol 292 H* Assessment and Plan Assessment: * Seizure disorder. Patient states that she has been diagnosed with epilepsy, about 3 years before she started drinking heavily. Patient also gets alcohol related seizures. * History of chronic alcoholism, came with alcohol intoxication. * Elevated liver enzyme, likely due to alcoholism Plan: * Patient is taking 100 mg Topamax every day. This is a subtherapeutic dose for seizures. Patient was recommended to increase Topamax to 50 mg the morning and 100 mg at night for 1 week and then go up to 100 mg twice a day. * Patient states she has an appointment with Dr. Chu in [facility] next Friday. * Continue [facility] protocol for alcohol withdrawal. * Patient informed of [place] state law of no driving unless seizure free for 6 months, climbing ladders, operating dangerous machinery or unsupervised swimming. * Neurologically clear to transfer to [place]. Thank you for the consult.
[2024-03-21] MEDS ORDERED: medroxyPROGESTERone 150 MG/ML 1ML VIAL IM SCH (09:00)
== END 2024-01-29 06:40 | disposition home or self-care (01) ==
LOC: EC 13:19 → 5NMEDONC 14:21
PROVIDERS: ADMIT Hospitalist; ATTEND Hospitalist
DX: F10.239 Alcohol dependence with withdrawal, unspecified (principal); K70.10 Alcoholic hepatitis without ascites; R74.8 Abnormal levels of other serum enzymes; G40.409 Other generalized epilepsy and epileptic syndromes, not intractable, without status epilepticus; K21.9 Gastro-esophageal reflux disease without esophagitis; F31.9 Bipolar disorder, unspecified; F90.9 Attention-deficit hyperactivity disorder, unspecified type; Y90.8 Blood alcohol level of 240 mg/100 ml or more; Z87.891 Personal history of nicotine dependence; Z79.899 Other long term (current) drug therapy
CPT/HCPCS: 96376; 96374; 96375 ×2; 96361; 99285; 36415; 80053; 83690; 83735; 84100; 85025; 80320; G0378 ×3; J2060; J2405 ×2; J2470